=== PATIENT | male | born 1965 | race Caucasian/White ===

== ENCOUNTER 2020-01-05 07:54 | Emergency (ER) | payer SELFPAY ==
[~2020-01-05] VITALS: Ht 160 cm; Wt 63.5 kg
[2020-01-05] MEDS ORDERED: LIDOCAINE MPF 1% 10 MG/ML VIAL INJ ONE (08:00)
[2020-01-05 08:07] VITALS: BP 245/131
[2020-01-05] MEDS ORDERED: ceFAZolin 1,000 MG VIAL IM ONE (08:35)
[2020-01-05] MEDS ORDERED: WATER STERILE 10 ML MC ONE (08:47)
[2020-01-05 10:34] VITALS: BP 245/131
== END 2020-01-05 10:32 | disposition short-term general hospital (02) ==
LOC: EDBD 07:54 → MED 07:54
DX: S61.211A Laceration without foreign body of left index finger without damage to nail, initial encounter (principal); S61.213A Laceration without foreign body of left middle finger without damage to nail, initial encounter; S61.215A Laceration without foreign body of left ring finger without damage to nail, initial encounter; W29.8XXA Contact with other powered hand tools and household machinery, initial encounter; Y93.89 Activity, other specified; Y92.89 Other specified places as the place of occurrence of the external cause; Y99.8 Other external cause status
CPT/HCPCS: 12002; 73130; 90471; 90715; 96372; 99284; J0690; J2001; Q0092